=== PATIENT | female | born 1995 | race Asian ===

== ENCOUNTER 2018-11-08 04:27 | Inpatient (IN) ==
[2018-11-08] MEDS ORDERED: Oxytocin 30 Units/500ml Premix 30 UNITS/500 ML BAG IV.SIG ONE (05:23)
[2018-11-08] MEDS ORDERED: fentaNYL Citrate Inj 100 MCG/2 ML Ampul IV.PUSH PRN (05:23)
[2018-11-08] MEDS ORDERED: Sodium Chlor 0.9% Inj 500 ML IV.SIG PRN (05:23)
[2018-11-08] MEDS ORDERED: Naloxone Inj 0.4 MG/ML Vial IV.PUSH PRN (05:23)
[2018-11-08] MEDS ORDERED: Sod Chloride 0.9% Inj 1,000 ML IV.CONT PRN (05:23)
--- NOTE | 2018-11-08 05:23 | ED ---
History of Present Illness [place] [facility] [place] Physician: NOT REQUIRED Chief Complaint: ruptured membranes History of Present Illness: This 23 y/o female G1, EGA 40 4/7 wks presents to the [facility] with c/o SROM at 3: 30 AM. Amnisure is positive. +FM, No VB, not feeling ctxs. She denies probs with this . She has had PNC with Zo Solomon and then transferred to Dr. Velasquez at 37 wks. Weeks Gestation:: 40 Para: 0 : 1 Review of Systems All other systems reviewed negative except as stated in HPI PMFSH - Medical / Surgical Hx Neg / Unobtainable Medical Problems Denied: Yes Surgical History: No Previous Surgery - Medical History Medical History: Medical History (Last Updated 11/08/18 @ 05:18 by Keren Brooks DO) Patient denies medical problems - Surgical History Surgical History: Surgical History (Last Updated 11/08/18 @ 05:18 by Keren Brooks DO) No history of previous surgery - Social History I have reviewed the patient's Social History: Yes - Tobacco History Smoking Status: Never smoker - Alcohol History How Often Do You Have a Drink Containing Alcohol: Never - Substance Use History Substance History: No History of Abuse - Travel History History of Recent Travel: No Medications and Allergies Allergies Allergy/AdvReac Type Severity Reaction Status Date / Time No Known Allergies Allergy Unverified 11/08/18 05:04 Home Medications Medication Instructions Recorded Confirmed Type 11/08/18 History Exam Vital signs: Vital Signs 11/08/18 04:52 11/08/18 05:03 Temperature 99.0 F Pulse Rate 98 H 97 H Respiratory Rate 18 Blood Pressure 136/90 120/81 Narrative: GENERAL: Well-nourished, well-developed patient. SKIN: Warm and dry. HEAD: Normocephalic and atraumatic. EYES: No scleral icterus. No injection or drainage. ENT: No nasal drainage noted. Mucous membranes pink. Airway patent. NECK: Supple, trachea midline. No JVD. CARDIOVASCULAR: Regular rate and rhythm without murmurs, gallops, or rubs. RESPIRATORY: Breath sounds equal bilaterally. No accessory muscle use. ABDOMEN/GI: Abdomen soft, non-tender, bowel sounds present, no rebound, no guarding Gravid to [40] weeks size GENITOURINARY: External Genitalia: intact and normal in appearance BUS glands: [Neg] Cervix: [Mid] Dilatation: [3] Effacement: [80] Station: [-2] Presentation: [vertex] Membranes: [ruptured] Uterine Contractions: [every 3 min] FHT's: Category: [1] Baseline: [130] Reactive: [No] Variability: [Mod] Decels: [No] No Accels EXTREMITIES: No cyanosis or edema. BACK: Nontender without obvious deformity. No CVA tenderness. NEUROLOGICAL: Awake and alert. Motor and sensory grossly within normal limits. Five out of 5 muscle strength in all muscle groups. Normal speech. Results - Labs Labs: Amnisure- Pos Group B Strep: Negative Assessment and Plan - Diagnosis (1) SROM (spontaneous rupture of membranes) Status: Acute (2) Language barrier Code(s): Z78.9 - Other specified health status Status: Acute (3) 40 weeks gestation of Code(s): Z3A.40 - 40 weeks gestation of Status: Acute - Plan Admit to L&D Pit as needed Discharge Plan - Physicians Team ED Provider: Keren Brooks Primary Care Provider: NOT REQUIRED, - Rxs /Orders / Referrals /Forms Prescriptions: No Action - Discharge Instructions Print Language: Swazi
--- NOTE | 2018-11-08 05:29 | P.HPOB ---
OB Admission History and Physical Patient Name: Tracy Pierce Date of : 89 Patient Status: Inpatient Attending Provider: Keren Brooks Date: 11/08/18 05:27 Initialization Date: 11/08/18 05:10 History of Present Illness Service: OB Primary Care Physician: NOT REQUIRED Chief Complaint: ruptured membranes History of Present Illness: This 23 y/o female G1, EGA 40 4/7 wks presents to the [facility] with c/o SROM at 3: 30 AM. Amnisure is positive. +FM, No VB, not feeling ctxs. She denies probs with this . She has had PNC with [facility] Solomon and then transferred to Dr. Velasquez at 37 wks. Weeks Gestation:: 40 Para: 0 : 1 Review of Systems All other systems reviewed negative except as stated in HPI PMFSH - Medical / Surgical Hx Neg / Unobtainable Medical Problems Denied: Yes Surgical History: No Previous Surgery - Medical History Medical History: Medical History (Last Updated 11/08/18 @ 05:18 by Keren Brooks DO) Patient denies medical problems - Surgical History Surgical History: Surgical History (Last Updated 11/08/18 @ 05:18 by Keren Brooks DO) No history of previous surgery - Social History I have reviewed the patient's Social History: Yes - Tobacco History Smoking Status: Never smoker - Alcohol History How Often Do You Have a Drink Containing Alcohol: Never - Substance Use History Substance History: No History of Abuse - Travel History History of Recent Travel: No Medications and Allergies Allergies Allergy/AdvReac Type Severity Reaction Status Date / Time No Known Allergies Allergy Unverified 11/08/18 05:04 Home Medications Medication Instructions Recorded Confirmed Type 11/08/18 History Exam Vital signs: Vital Signs 11/08/18 04:52 11/08/18 05:03 Temperature 99.0 F Pulse Rate 98 H 97 H Respiratory Rate 18 Blood Pressure 136/90 120/81 Narrative: GENERAL: Well-nourished, well-developed patient. SKIN: Warm and dry. HEAD: Normocephalic and atraumatic. EYES: No scleral icterus. No injection or drainage. ENT: No nasal drainage noted. Mucous membranes pink. Airway patent. NECK: Supple, trachea midline. No JVD. CARDIOVASCULAR: Regular rate and rhythm without murmurs, gallops, or rubs. RESPIRATORY: Breath sounds equal bilaterally. No accessory muscle use. ABDOMEN/GI: Abdomen soft, non-tender, bowel sounds present, no rebound, no guarding Gravid to [40] weeks size GENITOURINARY: External Genitalia: intact and normal in appearance BUS glands: [Neg] Cervix: [Mid] Dilatation: [3] Effacement: [80] Station: [-2] Presentation: [vertex] Membranes: [ruptured] Uterine Contractions: [every 3 min] FHT's: Category: [1] Baseline: [130] Reactive: [No] Variability: [Mod] Decels: [No] + Accel EXTREMITIES: No cyanosis or edema. BACK: Nontender without obvious deformity. No CVA tenderness. NEUROLOGICAL: Awake and alert. Motor and sensory grossly within normal limits. Five out of 5 muscle strength in all muscle groups. Normal speech. Results - Labs Labs: Amnisure- Pos Group B Strep: Negative Assessment and Plan - Diagnosis (1) SROM (spontaneous rupture of membranes) Status: Acute (2) Language barrier Code(s): Z78.9 - Other specified health status Status: Acute (3) 40 weeks gestation of Code(s): Z3A.40 - 40 weeks gestation of Status: Acute - Plan Admit to L&D Pit as needed Discharge Plan - Physicians Team ED Provider: Keren Brooks Primary Care Provider: NOT REQUIRED, - Rxs /Orders / Referrals /Forms Prescriptions: No Action - Discharge Instructions Print Language: Mauritanian
[2018-11-08] MEDS ORDERED: Citric Acid/Sodium Citrate Liq 30 ML UDC PO SCH (05:30)
[2018-11-08 06:05] LABS: Baso # (Auto) 0.1 th/mm3 (0.0-0.2); Baso % (Auto) 0.6 % (0.0-2.0); Eos # (Auto) 0.1 th/mm3 (0.0-0.4); Eos % (Auto) 0.7 % (0.0-4.0); Hematocrit 39.5 % (35.0-46.0); Hemoglobin 13.6 gm/dL (11.6-15.3); Lymph # (Auto) 1.9 th/mm3 (1.0-4.8); Lymph % (Auto) 19.6 % (9.0-44.0); Mean Corpuscular HGB Conc 34.4 % (32.0-36.0); Mean Corpuscular Hemoglobin 29.5 pg (27.0-34.0); Mean Corpuscular Volume 85.6 fL (80.0-100.0); Mean Platelet Volume 8.7 fL (7.0-11.0); Mono # (Auto) 0.8 th/mm3 (0.0-0.9); Mono % (Auto) 8.2 % (0.0-8.0); Neut % (Auto) 70.9 % (16.0-70.0); Platelet Count 250 th/mm3 (150-450); Red Blood Count 4.62 mil/mm3 (4.00-5.30); Red Cell Distribution Width 15.3 % (11.6-17.2); White Blood Count 9.8 th/mm3 (4.0-11.0)
[2018-11-08] MEDS ORDERED: Oxytocin 30 Units/500ml Premix 30 UNITS/500 ML BAG IV.SIG PRN (06:20)
[2018-11-08 06:47] LABS: Bacteria,Urine Rare /hpf; Bilirubin,Urine Negative (Negative); Clarity,Urine Clear (Clear); Color,Urine Straw (Yellw/Straw); Glucose,Urine (UA) Negative (Negative); Leukocyte Esterase,Urine Negative (Negative); Mucus,Urine Few /lpf (Occasional); Nitrite,Urine Negative (Negative); Specific Gravity,Urine 1.002 (1.002-1.035); Squamous Epithelial Cell,Urine 3 /hpf (0-5)
[2018-11-08] MEDS: fentaNYL Citrate Inj 100 MCG/2 ML Ampul IV.PUSH PRN ×3 (10:32→14:46)
--- NOTE | 2018-11-08 11:33 | P.OBGPN ---
Vaginal exam-cervix 4 cm/90% effaced/-1 station. heart rate category 1. 8 milliunits of Pitocin at current. Patient received fentanyl. Continue current management.
--- NOTE | 2018-11-08 16:37 | P.OBLABOR ---
Subjective Interval history: Pt has no complaints. She does not want a epidural. Objective Vital Signs: Vital Signs - 8 hr 11/08/18 08:50 11/08/18 08:56 11/08/18 09:00 Temperature 98.1 F Pulse Rate 85 81 Respiratory Rate 19 Blood Pressure 127/92 H 131/90 11/08/18 10:00 11/08/18 11:32 11/08/18 12:00 Temperature Pulse Rate 93 H 83 Respiratory Rate 20 Blood Pressure 126/82 129/80 11/08/18 12:30 11/08/18 13:00 11/08/18 13:33 Temperature Pulse Rate 79 87 77 Respiratory Rate Blood Pressure 136/89 126/86 129/80 11/08/18 14:01 11/08/18 14:30 11/08/18 15:01 Temperature 97.9 F Pulse Rate 88 86 79 Respiratory Rate Blood Pressure 134/93 H 139/91 H 133/78 11/08/18 16:01 Temperature Pulse Rate 87 Respiratory Rate Blood Pressure 139/86 Objective: Pelvic Exam: Cervix: midline Dilatation: 8cm Effacement: 90 Station: -1 Presentation: vertex Membranes: ruptured Uterine Contractions: q2m FHT's: Category: 1 Baseline: 140s Reactive: yes Variability: moderate Decels: early Assessment and Plan - Plan Admit to L&D Pit as needed Continue to monitor progress
[2018-11-08] MEDS ORDERED: fentaNYL 2MCG-Bupiv 0.125% Epi 150 ML EPIDURAL ONE (16:50)
[2018-11-08] MEDS ORDERED: fentaNYL 2MCG-Bupiv 0.125% Epi 150 ML EPIDURAL PRN (17:30)
[2018-11-08] MEDS ORDERED: fentaNYL Citrate Inj 100 MCG/2 ML Ampul EPIDURAL ONE (17:30)
[2018-11-09] MEDS ORDERED: Azithromycin Inj 500 MG in Sodium Chlor 0.9% Inj 250 ML IV.SIG ONE ×2
[2018-11-09] MEDS ORDERED: Lidocaine 1% Inj 50 ML Vial ONE (00:06)
[2018-11-09] MEDS ORDERED: Bisacodyl 10 MG Supp RECTAL PRN (00:52)
[2018-11-09] MEDS ORDERED: Naloxone Inj 0.4 MG/ML Vial IV.PUSH PRN (00:52)
[2018-11-09] MEDS ORDERED: Acetaminophen 325 MG Tablet PO PRN (00:52)
[2018-11-09] MEDS ORDERED: Witch Hazel 50%/Glyderin 12.5% 40 Pad Jar RECTAL PRN (00:52)
[2018-11-09] MEDS ORDERED: Oxytocin 30 Units/500ml Premix 30 UNITS/500 ML BAG IV.CONT PRN (00:52)
[2018-11-09] MEDS ORDERED: Benzocaine 20% Top Spray 60 ML Can TOPICAL PRN (00:52)
[2018-11-09] MEDS ORDERED: Zolpidem Tartrate 5 MG Tablet PO PRN (00:52)
--- NOTE | 2018-11-09 00:58 | P.OBDELI ---
Weeks Gestation: 40 Medical Induction of Labor: No Artificial Rupture of Membrane: No Anesthesia: Epidural Episiotomy: none Vaginal Delivery: Normal Presentation: Occiput anterior Nuchal Cord: None Delayed Cord Clamping (45 sec): Yes Placenta: Spontaneous delivery Laceration: Perineal, 2 deg Repair: Chromic interrupted, Chromic running Estimated blood loss (mL): 150 Infant: Female, Single Female A Infant Delivery Date: 11/09/18 Delivery Time: 00:10 Weight: 2.89 kg score (1 min): 8 score (5 min): 9
[2018-11-09] MEDS: Senna/Docusate Sodium 8.6/50 MG Tablet PO SCH (11:03)
[2018-11-09] MEDS ORDERED: Diphtheria/Tetanus/Pertussis Vaccine Inj 0.5 ML Syringe IM ONE (16:00)
[2018-11-09] MEDS ORDERED: Measles/Mumps/Rubella Vaccine Inj 0.5 ML Vial SQ ONE (16:00)
[2018-11-10] MEDS: Senna/Docusate Sodium 8.6/50 MG Tablet PO SCH ×2 (01:44→08:03)
--- NOTE | 2018-11-10 08:24 | P.PNOB ---
Subjective Post day: 1 Interval history: Pt seen and examined this morning. day # 1 AFVSS overnight. Decreased lochia. Denies dysuria. No breast tenderness. She is feeding the baby via breast. Appetite good. No nausea or vomiting. Has had BM. Ambulating well. Denies calf pain or shortness of breath. Patient reports that last night she developed some itchy hives all over her body. She received Benadryl last night with minimal improvement. Denies any difficulties breathing. Objective Vital Signs/I&O: Vital Signs 11/09/18 20:00 11/09/18 20:05 11/10/18 02:35 Temperature 97.5 F L 97.5 F L 98.5 F Pulse Rate 90 90 85 Respiratory Rate Blood Pressure 108/69 108/69 125/80 Result Diagrams: 11/08/18 05:49 Objective Remarks: GENERAL: Well-nourished, well-developed patient. CARDIOVASCULAR: Regular rate and rhythm without murmurs, gallops, or rubs. RESPIRATORY: Breath sounds equal bilaterally. No accessory muscle use. ABDOMEN/GI: Abdomen soft, non-tender. Fundus: Firm, non-tender at umbilicus. GENITOURINARY: Light to moderate bleeding. EXTREMITIES: No cyanosis or edema, non-tender, without signs of DVT. Skin: Multiple small hives all over body, mildly erythematous,no skin breakdown or signs of infection. Medications and IVs: Active Medications Acetaminophen (Tylenol) 650 mg PO Q4H PRN PRN Reason: PAIN SCALE 1 TO 2 Al Hydroxide/Mg Hydroxide (Milk Of Magnesia Liq) 30 ml PO Q12H PRN PRN Reason: Mild Constipation Benzocaine (Americaine 20% [place]) 1 spray TOPICAL Q4H PRN PRN Reason: For Perineum Discomfort Last Admin: 11/09/18 15:51 Dose: 1 spray Bisacodyl (Dulcolax Supp) 10 mg RECTAL DAILY PRN PRN Reason: SEVERE CONSITIPATION Citric Acid/Sodium Citrate (Sodium Citrate/Citric Acid Liq) 30 ml PO [employer] [facility] Stop: 11/12/18 05:29 Diphenhydramine HCl (Benadryl) 25 mg PO Q6H@07,13,19,01 PRN PRN Reason: FOR ITCHING Last Admin: 11/10/18 07:52 Dose: 25 mg Fentanyl Citrate (Fentanyl Inj) 50 mcg IV.PUSH Q1H PRN PRN Reason: Pain Scale 3 - 5 Fentanyl Citrate (Fentanyl Inj) 100 mcg IV.PUSH Q1H PRN PRN Reason: PAIN SCALE 6 TO 10 Last Admin: 11/08/18 14:46 Dose: 100 mcg Lactated Ringer's (Lr 1000 Ml Inj) 1,000 mls @ 3,000 mls/hr IV.SIG UNSCH PRN PRN Reason: compromise or epidural Sodium Chloride (Ns Inj) 500 mls @ 1,000 mls/hr IV.SIG UNSCH PRN PRN Reason: SEE LABEL COMMENTS Sodium Chloride (Ns Inj) 1,000 mls @ 100 mls/hr IV.CONT .Q10H PRN PRN Reason: SEE LABEL COMMENTS Lactated Ringer's (Lr 1000 Ml Inj) 1,000 mls @ 125 mls/hr IV.CONT .Q8H [facility] Last Admin: 11/09/18 05:15 Dose: Not Given Oxytocin (Pitocin 30 Units/Ns 500 Ml Premix) 30 units in 500 mls @ 2 mls/hr IV.SIG TITRATE PRN; Protocol PRN Reason: For induction of labor Last Admin: 11/08/18 06:52 Dose: 2 milliunit/min, 2 mls/hr Fentanyl/Bupivacaine/Sodium Chlor (Fentanyl 2 Mcg-Bupiv 0.125% Epi) 150 mls @ 9 mls/hr EPIDURAL PRN PRN PRN Reason: for Labor Pain Oxytocin (Pitocin 30 Units/Ns 500 Ml Premix) 30 units in 500 mls @ 100 mls/hr IV.CONT UNSCH PRN PRN Reason: Heavy bleeding Ibuprofen (Motrin) 800 mg PO Q8H PRN PRN Reason: For Cramping Lactulose (Lactulose Liq) 30 ml PO DAILY PRN PRN Reason: SEVERE CONSITIPATION Lidocaine HCl (Xylocaine 1% Inj) 0.1 ml I-DERMAL PRN PRN PRN Reason: For IV start Stop: 11/11/18 05:22 Mineral Oil (Muri-Lube Oil) 10 ml TOPICAL PRN PRN PRN Reason: PRN perineal massage Naloxone HCl (Narcan Inj) 0.1 mg IV.PUSH Q2M PRN PRN Reason: for opiate reversal Ondansetron HCl (Zofran Inj) 4 mg IV.PUSH Q6H PRN PRN Reason: NAUSEA OR VOMITING Ondansetron HCl (Zofran Odt) 4 mg PO Q6H PRN PRN Reason: NAUSEA OR VOMITING Senna/Docusate Sodium (Kourtney-Colace) 1 tab PO BID [facility] Last Admin: 11/10/18 08:03 Dose: 1 tab Sennosides (Senokot) 17.2 mg PO Q12H PRN PRN Reason: Moderate Constipation Sodium Chloride (Ns Flush) 2 ml IV.FLUSH BID [facility] Last Admin: 11/10/18 01:44 Dose: Not Given Sodium Chloride (Ns Flush) 2 ml IV.FLUSH PRN PRN PRN Reason: FLUSH AFTER USING IV ACCESS Witch Vanessa/Glycerin (Tucks Pads) 1 applicatio RECTAL QID PRN PRN Reason: HEMORRHOIDS Last Admin: 11/09/18 15:51 Dose: 1 applicatio Zinc Acetate/Diphenhydramine (Benadryl 2% Cream) 1 applicatio TOPICAL Q8H PRN PRN Reason: itchying Zolpidem Tartrate (Ambien) 5 mg PO HS PRN PRN Reason: SLEEP Assessment and Plan - Diagnosis (1) Vaginal delivery Code(s): O80 - Encounter for full-term uncomplicated delivery Status: Acute - Plan 23 year old PPD#1. 1. Care - AFVSS - Encouraged OOB, as tolerated - Motrin prn pain - Advised pelvic rest x 6 weeks -Breast feeding - Contraception: Would like to discuss control options with PCP - Will f/u with OB provider in 6 weeks Discussed with
[2018-11-10] MEDS ORDERED: diphenhydrAMINE 2%/Zinc Cream 30 GM Tube TOPICAL PRN (09:00)
--- NOTE | 2018-11-11 07:27 | P.PNOB ---
Subjective Interval history: Pt seen and examined this morning. day # 2 AFVSS overnight. Decreased lochia. Denies dysuria. No breast tenderness. She is feeding the baby via breast. Appetite good. No nausea or vomiting. Has had BM. Ambulating well. Denies calf pain or shortness of breath. Denies any difficulties breathing. Objective Vital Signs/I&O: Vital Signs 11/10/18 08:35 11/10/18 19:11 Temperature 97.9 F 98.2 F Pulse Rate 98 H 98 H Respiratory Rate 16 18 Blood Pressure 106/81 121/84 Result Diagrams: 11/08/18 05:49 Objective Remarks: GENERAL: Well-nourished, well-developed patient. CARDIOVASCULAR: Regular rate and rhythm without murmurs, gallops, or rubs. RESPIRATORY: Breath sounds equal bilaterally. No accessory muscle use. ABDOMEN/GI: Abdomen soft, non-tender. Fundus: Firm, non-tender at umbilicus. GENITOURINARY: Light to moderate bleeding. EXTREMITIES: No cyanosis or edema, non-tender, without signs of DVT. Medications and IVs: Active Medications Acetaminophen (Tylenol) 650 mg PO Q4H PRN PRN Reason: PAIN SCALE 1 TO 2 Al Hydroxide/Mg Hydroxide (Milk Of Magnesia Liq) 30 ml PO Q12H PRN PRN Reason: Mild Constipation Benzocaine (Americaine 20% Top [place]) 1 spray TOPICAL Q4H PRN PRN Reason: For Perineum Discomfort Last Admin: 11/09/18 15:51 Dose: 1 spray Bisacodyl (Dulcolax Supp) 10 mg RECTAL DAILY PRN PRN Reason: SEVERE CONSITIPATION Citric Acid/Sodium Citrate (Sodium Citrate/Citric Acid Liq) 30 ml PO [employer] [facility] Stop: 11/12/18 05:29 Diphenhydramine HCl (Benadryl) 25 mg PO Q6H@07,13,, PRN PRN Reason: FOR ITCHING Last Admin: 11/10/18 18:45 Dose: 25 mg Fentanyl Citrate (Fentanyl Inj) 50 mcg IV.PUSH Q1H PRN PRN Reason: Pain Scale 3 - 5 Fentanyl Citrate (Fentanyl Inj) 100 mcg IV.PUSH Q1H PRN PRN Reason: PAIN SCALE 6 TO 10 Last Admin: 11/08/18 14:46 Dose: 100 mcg Lactated Ringer's (Lr 1000 Ml Inj) 1,000 mls @ 3,000 mls/hr IV.SIG UNSCH PRN PRN Reason: compromise or epidural Sodium Chloride (Ns Inj) 500 mls @ 1,000 mls/hr IV.SIG UNSCH PRN PRN Reason: SEE LABEL COMMENTS Sodium Chloride (Ns Inj) 1,000 mls @ 100 mls/hr IV.CONT .Q10H PRN PRN Reason: SEE LABEL COMMENTS Lactated Ringer's (Lr 1000 Ml Inj) 1,000 mls @ 125 mls/hr IV.CONT .Q8H [facility] Last Admin: 11/10/18 14:35 Dose: Not Given Oxytocin (Pitocin 30 Units/Ns 500 Ml Premix) 30 units in 500 mls @ 2 mls/hr IV.SIG TITRATE PRN; Protocol PRN Reason: For induction of labor Last Admin: 11/08/18 06:52 Dose: 2 milliunit/min, 2 mls/hr Fentanyl/Bupivacaine/Sodium Chlor (Fentanyl 2 Mcg-Bupiv 0.125% Epi) 150 mls @ 9 mls/hr EPIDURAL PRN PRN PRN Reason: for Labor Pain Oxytocin (Pitocin 30 Units/Ns 500 Ml Premix) 30 units in 500 mls @ 100 mls/hr IV.CONT UNSCH PRN PRN Reason: Heavy bleeding Ibuprofen (Motrin) 800 mg PO Q8H PRN PRN Reason: For Cramping Lactulose (Lactulose Liq) 30 ml PO DAILY PRN PRN Reason: SEVERE CONSITIPATION Mineral Oil (Muri-Lube Oil) 10 ml TOPICAL PRN PRN PRN Reason: PRN perineal massage Naloxone HCl (Narcan Inj) 0.1 mg IV.PUSH Q2M PRN PRN Reason: for opiate reversal Ondansetron HCl (Zofran Inj) 4 mg IV.PUSH Q6H PRN PRN Reason: NAUSEA OR VOMITING Ondansetron HCl (Zofran Odt) 4 mg PO Q6H PRN PRN Reason: NAUSEA OR VOMITING Senna/Docusate Sodium (Kourtney-Colace) 1 tab PO BID [facility] Last Admin: 11/10/18 08:03 Dose: 1 tab Sennosides (Senokot) 17.2 mg PO Q12H PRN PRN Reason: Moderate Constipation Sodium Chloride (Ns Flush) 2 ml IV.FLUSH BID [facility] Last Admin: 11/10/18 15:40 Dose: Not Given Sodium Chloride (Ns Flush) 2 ml IV.FLUSH PRN PRN PRN Reason: FLUSH AFTER USING IV ACCESS Witch Vanessa/Glycerin (Tucks Pads) 1 applicatio RECTAL QID PRN PRN Reason: HEMORRHOIDS Last Admin: 11/09/18 15:51 Dose: 1 applicatio Zinc Acetate/Diphenhydramine (Benadryl 2% Cream) 1 applicatio TOPICAL Q8H PRN PRN Reason: itchying Zolpidem Tartrate (Ambien) 5 mg PO HS PRN PRN Reason: SLEEP Assessment and Plan - Diagnosis (1) Vaginal delivery Code(s): O80 - Encounter for full-term uncomplicated delivery Status: Acute - Plan 23 year old PPD#2. 1. Care - AFVSS - Encouraged OOB, as tolerated - Motrin prn pain - Advised pelvic rest x 6 weeks -Breast feeding - Contraception: Would like to discuss control options with PCP - Will f/u with OB provider in 6 weeks Discussed with
[2018-11-11] MEDS ORDERED: Influenza (Quadrivalent) Vaccine 0.5 ML Syringe IM ONE (10:00)
[2018-11-11] MEDS: Senna/Docusate Sodium 8.6/50 MG Tablet PO SCH (11:01)
== END 2018-11-11 13:33 | disposition home or self-care (01) ==
LOC: HOBED 04:27 → H2E 05:04 → H1EA 11-09 02:44
PROVIDERS: ADMIT Obstetrics & Gynecology; ATTEND Obstetrics & Gynecology